=== PATIENT | male | born 1980 | race African-American/Black ===

== ENCOUNTER 2020-09-07 15:46 | Emergency (ER) | payer BC ==
[2020-09-07] MEDS ORDERED: Acetaminophen 500 MG TAB ONE (17:10)
== END 2020-09-07 20:19 | disposition home or self-care (01) ==
LOC: CSHERS 15:46
DX: U07.1 COVID-19 (principal); J12.82 Pneumonia due to coronavirus disease 2019; I10 Essential (primary) hypertension
CPT/HCPCS: 76705; 93005

== ENCOUNTER 2025-01-17 15:42 | Outpatient (CLI) | payer BC | END 2025-01-17 15:43 | disposition home or self-care (01) | LOC: CSHDTY/OP 15:42 | PROVIDERS: ATTEND Nurse Practitioner Family | DX: Z71.3 Dietary counseling and surveillance (principal) | CPT/HCPCS: 97802 ==